=== PATIENT | female | born 1945 | race Asian ===

== ENCOUNTER 2019-07-09 17:15 | Emergency (ER) | payer OTHER ==
[~2019-07-09] VITALS: Ht 152.4 cm; Wt 59.0 kg
[2019-07-09 17:19] VITALS: BP 160/78
[2019-07-09] MEDS ORDERED: ATORVASTATIN CA20 MG ORAL (17:24)
[2019-07-09] MEDS ORDERED: jenuvia (17:24)
[2019-07-09] MEDS ORDERED: GLIPIZIDE5 MG ORAL (17:24)
[2019-07-09] MEDS ORDERED: AMLODIPINE BESYL5 MG ORAL (17:24)
[2019-07-09] MEDS ORDERED: METFORMIN HCL500 M1 ORAL (17:24)
--- NOTE | 2019-07-09 17:25 | NUR ---
ED Nurse Note: Patient walked into ED with her daughter due to rash behind her ears, itching for 2 days. patient's daughter gave her antihistamine which helped her with the itchiness.
--- NOTE | 2019-07-09 17:51 | Emergency Room Report ---
History of Present Illness General Chief Complaint: Earache Source: Patient (Marianne Nunez) Present Illness HPI 74-year-old female presents to the emergency department complaining of itchy rash behind the ears bilaterally x2 days. Denies pain reports 6 out of 10 severity itching and dry flaky skin. Patient reports that she did also just have her hair dyed however she denies symptoms on the rest of the scalp. Pt. denies fevers, chills or swollen tender lymph nodes. Denies lesions/rashes elsewhere on the body. Denies new medications or body washes or creams. Denies swelling of the lips, tongue , throat or airway. Denies wheezing, or shortness of breath. Denies recent travel, recent illness or ill contacts. denies blisters, oral lesions, or sloughing of the skin. (Marianne Nunez) Allergies: Coded Allergies: No Known Allergies (Unverified , 07/09/19) Patient History Past Medical History: see triage record Past Surgical History: none Pertinent Family History: none Now: No Reviewed Nursing Documentation: PMH: Agreed; PSxH: Agreed (Marianne Nunez) Nursing Documentation-PMH Past Medical History: No History, Except For (Marianne Nunez) Review of Systems All Other Systems: negative except mentioned in HPI (Marianne Nunez) Physical Exam Vital Signs Date Time Temp Pulse Resp B/P (MAP) Pulse Ox O2 Delivery O2 Flow Rate FiO2 07/09/19 17:19 98.6 73 18 160/78 (105) 97 Room Air Sp02 EP Interpretation: reviewed, normal General Appearance: no apparent distress, alert, GCS 15, non-toxic Head: normocephalic, atraumatic Eyes: bilateral eye normal inspection, bilateral eye PERRL ENT: hearing grossly normal, normal pharynx, no angioedema, normal voice, TMs + canals normal, other - dry flaky rash posterior ear bilaterally, no erythema, some opaque crusting noted, no warmth, excoriations noted, no blisters,vesicles or LAD Neck: full range of motion Respiratory: chest non-tender, lungs clear, normal breath sounds, no respiratory distress, no wheezing, speaking full sentences Cardiovascular #1: regular rate, rhythm, no edema Musculoskeletal: back normal, gait/station normal, normal range of motion, non- tender Neurologic: alert, oriented x3, responsive, motor strength/tone normal, sensory intact, speech normal, grossly normal Psychiatric: judgement/insight normal Skin: rash - dry flaky rash posterior ear bilaterally, no erythema, some opaque crusting noted, no warmth, excoriations noted, no blisters,vesicles or LAD Lymphatic: no adenopathy (Marianne Nunez) Medical Decision Making PA Attestation Dr. Pablo is my supervising Physician whom patient management has been discussed with. (Marianne Nunez) Medicare Attestation The history of Samia Oliveira has been reviewed and management options for her have been examined and discussed by Angel Pablo. I have personally examined and interviewed the patient. (Angel Pablo MD) Diagnostic Impression: Primary Impression: Dermatitis of external ear ER Course 74-year-old female presents to the emergency department complaining of itchy rash behind the ears bilaterally x2 days. Denies pain reports 6 out of 10 severity itching and dry flaky skin. Patient reports that she did also just have her hair dyed however she denies symptoms on the rest of the scalp. Pt. denies fevers, chills or swollen tender lymph nodes. Denies lesions/rashes elsewhere on the body. Denies new medications or body washes or creams. Denies swelling of the lips, tongue , throat or airway. Denies wheezing, or shortness of breath. Denies recent travel, recent illness or ill contacts. denies blisters, oral lesions, or sloughing of the skin Ddx considered but are not limited to cellulitis, scabies, shingles, varicella, dermatitis, urticaria, eczema, tinea, viral exanthem, SJS Vital signs: are WNL, pt. is afebrile H&PE are most consistent with Dermatitis behind the ears bilaterally, no LAD, no other lesions/rashes on the scalp. No signs of secondary bacterial infection at this time. ORDERS: none required at this time, the diagnosis is clinical ED INTERVENTIONS: None required at this time. DISCHARGE: At this time pt. is stable for d/c to home. Will provide printed patient care instructions, and any necessary prescriptions. Care plan and follow up instructions have been discussed with the patient prior to discharge. (Marianne Nunez) Last Vital Signs Date Time Temp Pulse Resp B/P (MAP) Pulse Ox O2 Delivery O2 Flow Rate FiO2 07/09/19 17:19 98.6 73 18 160/78 (105) 97 Room Air (Marianne Nunez) Disposition: HOME, SELF-CARE Condition: Stable Scripts Clotrimazole* (LOTRIMIN*) 15 Gm Cream..g. 1 APPLIC TOPIC TWICE A DAY, #15 GM Prov: Marianne Nunez 07/09/19 Hydrocortisone 2% Cream (ANTI-ITCH 2% CREAM) Y Cr 1 APPLIC TP Q6HR, #28.3 GM Prov: Marianne Nunez 07/09/19 Referrals: [facility],REFERRING (PCP) Patient Instructions: Contact Dermatitis, [id number], Rash, [id number] Additional Instructions: Take medications as directed. Follow up with a Primary Care Provider in 3-5 days, even if your symptoms have resolved. --Please review list of primary care clinics, if you do not already have a primary care provider Return sooner to ED if new symptoms occur, or current symptoms become worse. - Please note that this Emergency Department Report was dictated using [employer] technology software, occasionally this can lead to erroneous entry secondary to interpretation by the dictation equipment. Marianne Nunez Jul 09, 2019 17:50 Angel Pablo MD Jul 10, 2019 09:52
[2019-07-09] MEDS ORDERED: ANTI-ITCH28 G1 TP (17:53)
[2019-07-09] MEDS ORDERED: CLOTRIMAZOLE15 GM TOPIC (17:53)
[2019-07-09 18:00] VITALS: BP 160/78
--- NOTE | 2019-07-09 18:06 | NUR ---
ER DISCHARGE NOTE: Patient is cleared to be discharged per NAZIA URBAN, pt is aox4, on room air, with stable vital signs. pt was given dc and prescription instructions, pt was able to verbalize understanding, pt id band removed without complications. pt is able to ambulate with steady gait. pt took all belongings.
== END 2019-07-09 18:00 | disposition home or self-care (01) ==
LOC: EMR 17:37
DX: L30.9 Dermatitis, unspecified (principal)
CPT/HCPCS: 99282